=== PATIENT | female | born 1975 | race Caucasian/White ===

== ENCOUNTER → 2018-02-15 13:03 | Outpatient (CLI) | payer OTHER, SELFPAY ==
--- NOTE | 2018-02-15 | DI.MG.S_ITS ---
BILATERAL DIGITAL SCREENING MAMMOGRAM 3D/2D WITH CAD: 02/15/2018 CLINICAL: Routine screening. Baseline exam. No prior exams were available for comparison. There are scattered fibroglandular elements in both breasts. Current study was also evaluated with a Computer Aided Detection (CAD) system. There is a 3.1 cm irregular equal density asymmetry with a spiculated margin in the right breast at 11 o'clock posterior depth. There is architectural distortion associated with the asymmetry. No other significant masses, calcifications, or other findings are seen in either breast. IMPRESSION: INCOMPLETE: NEEDS ADDITIONAL IMAGING EVALUATION The 3.1 cm irregular equal density asymmetry in the right breast is indeterminate. Mediolateral and spot compression views as well as additional views with possible ultrasound are recommended. This exam was interpreted at Station ID: [id number]. NOTE: For mammograms, a report in lay terms will be sent to the patient. Approximately 15% of breast malignancies will not be visualized mammographically. In the management of a palpable breast mass, a negative mammogram must not discourage biopsy of a clinically suspicious lesion. Electronically Signed By: Yoseph cabrales/susan:02/15/2018 16:09:54 letter sent: Additional Imaging Needed ACR BI-RADS Category 0: Incomplete 3340F
== END ==
PROVIDERS: PCP Nurse Practitioner; Visit Provider Nurse Practitioner
DX: Z12.31 Encounter for screening mammogram for malignant neoplasm of breast (principal)
CPT/HCPCS: 77063; 77067

== ENCOUNTER → 2018-02-26 14:13 | Outpatient (CLI) | payer OTHER, SELFPAY ==
--- NOTE | 2018-02-26 | DI.US.S_ITS ---
ULTRASOUND OF RIGHT BREAST: 02/26/2018 CLINICAL: Additional evaluation requested from prior study. Comparison is made to exams dated: 02/26/2018 mammogram and 02/15/2018 mammogram - [facility]. Color flow ultrasound of the right breast was performed. Alcantar scale images of the real-time examination were reviewed. There is a 1.8 cm x 1.1 cm x 0.8 cm irregular mass with a spiculated margin in the right breast at 11 o'clock middle depth 7 cm from the nipple. This irregular mass is hypoechoic. IMPRESSION: HIGHLY SUGGESTIVE OF MALIGNANCY - FOLLOW-UP RECOMMENDED The 1.8 cm x 1.1 cm x 0.8 cm irregular mass in the right breast is highly suggestive of malignancy. An ultrasound guided biopsy is recommended. Findings discussed in person with the patient by Dr. Riley of the department of radiology at the time of evaluation. This exam was interpreted at Station ID: [id number]. Electronically Signed By: Antwan Degroot M.D. cj/:02/26/2018 16:03:04 letter sent: Biopsy Required Ultrasound BI-RADS: 5 Highly suggestive of malignancy
--- NOTE | 2018-02-26 | DI.MG.S_ITS ---
UNILATERAL RIGHT DIGITAL DIAGNOSTIC MAMMOGRAM 3D/2D WITH ADDITIONAL VIEWS: 02/26/2018 CLINICAL: Additional evaluation requested from prior study. Comparison is made [facility] There are scattered fibroglandular elements in the right breast. There is a 1.7 cm irregular equal density mass with a spiculated margin and calcifications in the right breast at 11 o'clock middle depth. This correlates as palpated. No other significant masses or calcifications are seen in the breast. IMPRESSION: INCOMPLETE: NEEDS ADDITIONAL IMAGING EVALUATION The 1.7 cm irregular equal density mass in the right breast is indeterminate. An ultrasound is recommended. This exam was interpreted at Station ID: [id number]. NOTE: For mammograms, a report in lay terms will be sent to the patient. Approximately 15% of breast malignancies will not be visualized mammographically. In the management of a palpable breast mass, a negative mammogram must not discourage biopsy of a clinically suspicious lesion. Electronically Signed By: Antwan naranjo/susan:02/26/2018 16:01:18 ACR BI-RADS Category 0: Incomplete 3340F
== END ==
PROVIDERS: PCP Nurse Practitioner; Visit Provider Nurse Practitioner
DX: R92.8 Other abnormal and inconclusive findings on diagnostic imaging of breast (principal)
CPT/HCPCS: 76642; 77065; G0279

== ENCOUNTER 2018-07-10 14:30 | Outpatient (RCR) | payer OTHER, SELFPAY ==
--- NOTE | 2018-06-28 13:09 | PT.OPPOC ---
Current Diagnoses Malignant neoplasm of unspecified site of right female breast (06/27/18) Pain in right shoulder (06/27/18) Pain in right arm (06/27/18) Other specified postprocedural states (06/27/18) Provider Visit Care Team Role Provider Type EARLENE Mock Primary Care Provider Non-Staff Specialty: Medical Address: [address] [place] [address], [phone] Fax: Email: Tonie Cruz MD Attending Provider Non-Staff Specialty: General Surgery Address: [address] [place] [address], [phone] Email: Plan Of Care PT-OP-T Assessment and Plan Start: 06/27/18 11:15 Freq: Status: Active Protocol: Document 06/27/18 11:15 FEDERICO (Rec: 06/28/18 10:36 [facility] [id number]) Physical Therapy Assessment Rehab Potential Rehabilitation Potential Good Evaluation Complexity Number of Personal Factors/Comorbidities 3 or More Number of Body Systems Impaired 3 Clinical Presentation at Evaluation Evolving Impairments Impairments Edema Functional Activities Pain ROM Goals Four Impairment edema [facility] Goal (LTG) Patient will obtain appropriate compression garment(s) as indicated by her signs and symptoms of edema. Three Impairment lymphedema vs post-op swelling right axilla and breast, potential R UE Short Term Goal (STG) Patient to be instructed in lymphedema precautions and prevention and demonstrate good understanding. Decrease edema in right axilla and breast to minimal. STG Duration 6 wks [facility] Goal (LTG) Patient to be independent with self-monitoring for edema and be taught manual lymphatic drainage techniques and sequential lymphedema exercises for self-management. No significant edema. LTG Duration 3 months Two Impairment ROM Short Term Goal (STG) Instruct patient in HEP for purposes of right UE ROM STG Duration 3 wks [facility] Goal (LTG) right shoulder ROM WNL with patient able to reach overhead and behind her back without difficulty LTG Duration 3 months One Impairment pain Short Term Goal (STG) Decrease pain to no greater than 2/10 right UE STG Duration 6 wks [facility] Goal (LTG) Decrease pain 0/10 LTG Duration 3 months Assessment Summary Assessment Patient presents with pain, decreased ROM and some swelling right axilla and breast; unclear at this time whether post-op edema or lymphedema. Has subclinical signs and symptoms of lymphedema right UE with c/o heavyness and achiness. Would benefit from PT for ROM right UE, scar massage, education regarding lymphedema symptoms, precautions, and prevention, edema management with manual techniques, therapeutic exercises, compression as indicated, close monitoring for change in edema symptoms. Physical Therapy Plan Frequency and Duration Frequency of Treatment 2x/Week Duration of Treatment 3 months Plan of Care Start Date 06/27/18 Plan of Care End Date 09/27/18 Therapeutic Interventions Therapeutic Interventions Home Exercise Program Lymphedema Management Manual Therapy Taping Therapeutic Exercises Next Visit Focus/Plan Next Note Type Treatment Note Next Visit Plan review HEP, progress as tolerated to include pulleys. Continue lymphedema education and treatment, scar massage, edema monitoring. Plan of Care Dates Plan of Care Start Date 06/27/18 Plan of Care End Date 09/27/18 Please Sign and Return: I have reviewed this Plan of Care and certify that the skilled therapy services above are required to meet the patient?s needs. Physician Signature Date Printed Name and Credentials Clinical Instructor Signature Printed Name and Credentials
--- NOTE | 2018-06-28 13:09 | PT.OIE ---
Current Diagnoses Malignant neoplasm of unspecified site of right female breast (06/27/18) Pain in right shoulder (06/27/18) Pain in right arm (06/27/18) Other specified postprocedural states (06/27/18) Provider Visit Care Team Role Provider Type EARLENE Mock Primary Care Provider Non-Staff Specialty: Medical Address: [address] [place] [address], [phone] Fax: Email: Tonie Cruz MD Attending Provider Non-Staff Specialty: General Surgery Address: [address] [place] [address], [phone] Email: Physical Therapy Initial Evaluation PT-OP-A Visit Information Start: 06/27/18 11:15 Freq: Status: Active Protocol: Document 06/27/18 11:15 SAK (Rec: 06/28/18 10:36 [facility] [id number]) Out-Patient Physical Therapy Visit Information Visit Information Visit Type Initial Evaluation Visit Start Time 11:15 Visit Stop Time 12:00 Total Visit Minutes 45 Visit Number 1 Number of CHEMICAL ETCH OPERATOR Visits 0 Evaluation Information Evaluation Date 06/27/18 PT-OP-B Current Condition Start: 06/27/18 11:15 Freq: Status: Active Protocol: Document 06/27/18 11:15 SAK (Rec: 06/28/18 10:36 [facility] [id number]) Current Condition History of Current Condition Onset Date 6 months Current Complaints right UE pain and tightness s/ p lumpectomy History of Current Condition Patient s/p lumpectomy 05/22/18 with 7 lymph nodes removed due to diagnosis of breast cancer. No chemo but just completed mapping to begin radiation treatments next week . C/o function-limiting pain and tightness right UE, with some c/o achiness and heaviness right UE. Hasn't noticed any UE edema but reports having some breast swelling especially toward end of day inferior aspect of breast. Referred to PT with order for ROM exercises, scar massage treatment, lymphedema education, evaluation and treatment. to include bilaterla extremity girth measurement. Future Testing and Treatments Planned radiation, Tamoxafin x 5 years . Treatment Goals Patient/Caregiver Goals Decrease pain and improve ROM to normal right UE. 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 [employer] Current Functional Impairments (Reported) Functional Limitations- ADL's difficulty reaching overhead and behind her back PT-OP-C Subjective Start: 06/27/18 11:15 Freq: Status: Active Protocol: Document 06/27/18 11:15 [facility] (Rec: 06/28/18 10:36 [facility] [id number]) Patient Questionnaires Quick Dash- Upper Extremity Quick Dash UE Score 55 Quick Dash UE Impairment 40 to 59% Impaired (Score 40- 59) OP-PT Pain Assessment Pain Assessment Grid Paper Pain Assessment Grid Completed Yes Location right UE, axilla Intensity 4 Scale Used Numeric (1 - 10) Description Aching Tender Pain Behaviors Pain Behaviors Guarding Wincing PT-OP-F Manual Assessment Start: 06/27/18 11:15 Freq: Status: Active Protocol: Document 06/27/18 11:15 [facility] (Rec: 06/28/18 10:36 [facility] [id number]) Manual Assessments Soft Tissue Assessment Soft Tissue Mobility Assessment Surgical scar well healed, immature with some decrease in mobility. Mild subaxillary and right breast swelling with mild subaxillary puckering. Soft tissue of right UE and breast without increase in warmth or fibrosis. Patient reports some increased warmth right breast especially toward end of day. PT-OP-J Posture/Palpation/Skin Start: 06/27/18 11:15 Freq: Status: Active Protocol: Document 06/27/18 11:15 [facility] (Rec: 06/28/18 10:36 [facility] [id number]) Posture Evaluation Position Sitting Head/C-Spine Posture Forward Head T-Spine Posture Increased Kyphosis Shoulder Posture (L) Rounded (R) Rounded PT-OP-K Range of Motion Start: 06/27/18 11:15 Freq: Status: Active Protocol: Document 06/27/18 11:15 [facility]AK (Rec: 06/28/18 10:36 [facility] [id number]) Cervical Spine Range of Motion Cervical Spine Active Comments WNL Shoulder Goniometric Range of Motion Shoulder Measured in Degrees Right Active Shoulder ROM WFL Yes Testing Position Sitting Flexion 155 Extension 10 Abduction 150 External Rotation at 45 degrees 55 Abduction Internal Rotation Behind Back (text) L4 Left Active Shoulder ROM WFL Yes Testing Position Sitting Flexion 175 Extension 25 Abduction 170 External Rotation at 45 degrees 55 Abduction Internal Rotation Behind Back (text) T10 Shoulder ROM Limitations Shoulder ROM Limitations Soft Tissue Tightness Pain PT-OP-N Lymphedema Start: 06/27/18 11:15 Freq: Status: Active Protocol: Document 06/27/18 11:15 [facility] (Rec: 06/28/18 10:36 [facility] [id number]) Lymphedema Measurements Upper Extremity Circumference Measurements Right Affected MCP 19.5 cm Wrist 17.3 cm 5 cm From Distal Crease 18.9 cm 10 cm From Distal Crease 23.1 cm 15 cm From Distal Crease 25.8 cm 20 cm From Distal Crease 26 cm 25 cm From Distal Crease 27.8 cm 30 cm From Distal Crease 30.1 cm 35 cm From Distal Crease 32.8 cm 40 cm From Distal Crease 34 cm Axilla 37.4 cm Left Unaffected MCP 20.3 cm Wrist 17.2 cm 5 cm From Distal Crease 19 cm 10 cm From Distal Crease 22.9 cm 15 cm From Distal Crease 26.2 cm 20 cm From Distal Crease 25.9 cm 25 cm From Distal Crease 28.5 cm 30 cm From Distal Crease 29.8 cm 35 cm From Distal Crease 32.6 cm 40 cm From Distal Crease 34.8 cm Axilla 36.9 cm PT-OP-Q Treatments Start: 06/27/18 11:15 Freq: Status: Active Protocol: Document 06/27/18 11:15 [facility] (Rec: 06/28/18 10:36 [facility] [id number]) Lymphedema Treatment Patient Education Lymphedema Pathology initiated Lymphedema Prevention initiated Lymphedema Precautions initiated Compression Garments recommended shapewear for breast edema Other Instructed in gentle scar massage for surgical scar. PT-OP-T Assessment and Plan Start: 06/27/18 11:15 Freq: Status: Active Protocol: Document 06/27/18 11:15 [facility] (Rec: 06/28/18 10:36 [facility] [id number]) Physical Therapy Assessment Rehab Potential Rehabilitation Potential Good Evaluation Complexity Number of Personal Factors/Comorbidities 3 or More Number of Body Systems Impaired 3 Clinical Presentation at Evaluation Evolving Impairments Impairments Edema Functional Activities Pain ROM Goals Four Impairment edema Clinical Documentation Consultant Goal (LTG) Patient will obtain appropriate compression garment(s) as indicated by her signs and symptoms of edema. Three Impairment lymphedema vs post-op swelling right axilla and breast, potential R UE Short Term Goal (STG) Patient to be instructed in lymphedema precautions and prevention and demonstrate good understanding. Decrease edema in right axilla and breast to minimal. STG Duration 6 wks Clinical Documentation Consultant Goal (LTG) Patient to be independent with self-monitoring for edema and be taught manual lymphatic drainage techniques and sequential lymphedema exercises for self-management. No significant edema. LTG Duration 3 months Two Impairment ROM Short Term Goal (STG) Instruct patient in HEP for purposes of right UE ROM STG Duration 3 wks Clinical Documentation Consultant Goal (LTG) right shoulder ROM WNL with patient able to reach overhead and behind her back without difficulty LTG Duration 3 months One Impairment pain Short Term Goal (STG) Decrease pain to no greater than 2/10 right UE STG Duration 6 wks Clinical Documentation Consultant Goal (LTG) Decrease pain 0/10 LTG Duration 3 months Assessment Summary Assessment Patient presents with pain, decreased ROM and some swelling right axilla and breast; unclear at this time whether post-op edema or lymphedema. Has subclinical signs and symptoms of lymphedema right UE with c/o heavyness and achiness. Would benefit from PT for ROM right UE, scar massage, education regarding lymphedema symptoms, precautions, and prevention, edema management with manual techniques, therapeutic exercises, compression as indicated, close monitoring for change in edema symptoms. Physical Therapy Plan Frequency and Duration Frequency of Treatment 2x/Week Duration of Treatment 3 months Plan of Care Start Date 06/27/18 Plan of Care End Date 09/27/18 Therapeutic Interventions Therapeutic Interventions Home Exercise Program Lymphedema Management Manual Therapy Taping Therapeutic Exercises Next Visit Focus/Plan Next Note Type Treatment Note Next Visit Plan review HEP, progress as tolerated to include pulleys. Continue lymphedema education and treatment, scar massage, edema monitoring.
--- NOTE | 2018-07-04 14:16 | PT.OTN ---
Current Diagnoses Malignant neoplasm of unspecified site of right female breast (07/03/18) Pain in right shoulder (07/03/18) Pain in right arm (07/03/18) Other specified postprocedural states (07/03/18) Physical Therapy Treatment Note PT-OP-A Visit Information Start: 06/27/18 11:15 Freq: Status: Active Protocol: Document 07/03/18 09:00 SAK (Rec: 07/04/18 14:15 [facility] [id number]) Out-Patient Physical Therapy Visit Information Visit Information Visit Type Treatment Note Visit Start Time 09:00 Visit Stop Time 09:45 Total Visit Minutes 45 Visit Number 2 Number of INSTRUCTOR BRIDGE Visits 0 Evaluation Information Evaluation Date 06/27/18 PT-OP-B Current Condition Start: 06/27/18 11:15 Freq: Status: Active Protocol: Document 06/27/18 11:15 [facility]AK (Rec: 06/28/18 10:36 [facility] [id number]) Current Condition History of Current Condition Onset Date 6 months Current Complaints right UE pain and tightness s/ p lumpectomy History of Current Condition Patient s/p lumpectomy 05/22/18 with 7 lymph nodes removed due to diagnosis of breast cancer. No chemo but just completed mapping to begin radiation treatments next week . C/o function-limiting pain and tightness right UE, with some c/o achiness and heaviness right UE. Hasn't noticed any UE edema but reports having some breast swelling especially toward end of day inferior aspect of breast. Referred to PT with order for ROM exercises, scar massage treatment, lymphedema education, evaluation and treatment. to include bilaterla extremity girth measurement. Future Testing and Treatments Planned radiation, Tamoxafin x 5 years . Treatment Goals Patient/Caregiver Goals Decrease pain and improve ROM to normal right UE. 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 Swelling in breast persists, has not gotten new bra for compression . PT-OP-F Manual Assessment Start: 06/27/18 11:15 Freq: Status: Active Protocol: Document 06/27/18 11:15 [facility]AK (Rec: 06/28/18 10:36 [facility] [id number]) Manual Assessments Soft Tissue Assessment Soft Tissue Mobility Assessment Surgical scar well healed, immature with some decrease in mobility. Mild subaxillary and right breast swelling with mild subaxillary puckering. Soft tissue of right UE and breast without increase in warmth or fibrosis. Patient reports some increased warmth right breast especially toward end of day. PT-OP-J Posture/Palpation/Skin Start: 06/27/18 11:15 Freq: Status: Active Protocol: Document 06/27/18 11:15 [facility]AK (Rec: 06/28/18 10:36 [facility] [id number]) Posture Evaluation Position Sitting Head/C-Spine Posture Forward Head T-Spine Posture Increased Kyphosis Shoulder Posture (L) Rounded (R) Rounded PT-OP-K Range of Motion Start: 06/27/18 11:15 Freq: Status: Active Protocol: Document 06/27/18 11:15 [facility]AK (Rec: 06/28/18 10:36 [facility] [id number]) Cervical Spine Range of Motion Cervical Spine Active Comments WNL Shoulder Goniometric Range of Motion Shoulder Measured in Degrees Right Active Shoulder ROM WFL Yes Testing Position Sitting Flexion 155 Extension 10 Abduction 150 External Rotation at 45 degrees 55 Abduction Internal Rotation Behind Back (text) L4 Left Active Shoulder ROM WFL Yes Testing Position Sitting Flexion 175 Extension 25 Abduction 170 External Rotation at 45 degrees 55 Abduction Internal Rotation Behind Back (text) T10 Shoulder ROM Limitations Shoulder ROM Limitations Soft Tissue Tightness Pain PT-OP-N Lymphedema Start: 06/27/18 11:15 Freq: Status: Active Protocol: Document 07/03/18 09:00 [facility]AK (Rec: 07/04/18 14:15 [facility] [id number]) Lymphedema Measurements Comments Lymphedema Comments R breast persistent edema inferiorly. PT-OP-Q Treatments Start: 06/27/18 11:15 Freq: Status: Active Protocol: Document 07/03/18 09:00 [facility] (Rec: 07/04/18 14:15 [facility] [id number]) Therapeutic Exercises Supine Exercises shoulder abd Reps/Minutes 10x shoulder flex with wand Reps/Minutes 10x pec stretch Reps/Minutes 2 min Sidelying Exercises reach and roll Reps/Minutes 5x ea side Comments verbal and manual clues Sitting Exercises shoulder rolls Reps/Minutes 10x pulleys shoulder flex,scaption Reps/Minutes 2 min Manual Therapy Treatment Soft Tissue Mobilization scar massage right axilla Mobilization Type Myofascial Release Lymphedema Treatment Manual Lymphatic Drainage Location right breast Duration 12 min Patient Education Self Manual Lymphatic Drainage instructed Other instructed to obtain new sports bra as well as stretchy shapewear for compression to chest; shown examples. PT-OP-T Assessment and Plan Start: 06/27/18 11:15 Freq: Status: Active Protocol: Document 07/03/18 09:00 FEDERICO (Rec: 07/04/18 14:15 [facility] [id number]) Physical Therapy Assessment Goals Four Impairment edema Machine Operations Supervisor Goal (LTG) Patient will obtain appropriate compression garment(s) as indicated by her signs and symptoms of edema. Three Impairment lymphedema vs post-op swelling right axilla and breast, potential R UE Short Term Goal (STG) Patient to be instructed in lymphedema precautions and prevention and demonstrate good understanding. Decrease edema in right axilla and breast to minimal. STG Duration 6 wks Machine Operations Supervisor Goal (LTG) Patient to be independent with self-monitoring for edema and be taught manual lymphatic drainage techniques and sequential lymphedema exercises for self-management. No significant edema. LTG Duration 3 months Two Impairment ROM Short Term Goal (STG) Instruct patient in HEP for purposes of right UE ROM STG Duration 3 wks Machine Operations Supervisor Goal (LTG) right shoulder ROM WNL with patient able to reach overhead and behind her back without difficulty LTG Duration 3 months One Impairment pain Short Term Goal (STG) Decrease pain to no greater than 2/10 right UE STG Duration 6 wks [facility] Goal (LTG) Decrease pain 0/10 LTG Duration 3 months Assessment Summary Assessment Patient's right shoulder ROM improved, demonstrated good understanding of exercises and appears to be compliant. Edema persists, patient demonstrated good understanding of need for compression and of options; she will pursue. Physical Therapy Plan Frequency and Duration Frequency of Treatment 2x/Week Duration of Treatment 3 months Plan of Care Start Date 06/27/18 Plan of Care End Date 09/27/18 Therapeutic Interventions Therapeutic Interventions Home Exercise Program Lymphedema Management Manual Therapy Taping Therapeutic Exercises Next Visit Focus/Plan Next Note Type Treatment Note Next Visit Plan assess any compression patient has obtained to reduce right breast edema. Continue with ther ex, manual techniques as indicated.
--- NOTE | 2018-07-10 16:47 | PT.OTN ---
Current Diagnoses Malignant neoplasm of unspecified site of right female breast (07/10/18) Pain in right shoulder (07/10/18) Pain in right arm (07/10/18) Other specified postprocedural states (07/10/18) Physical Therapy Treatment Note PT-OP-A Visit Information Start: 06/27/18 11:15 Freq: Status: Active Protocol: Document 07/10/18 14:30 SAK (Rec: 07/10/18 15:19 SAK [id number]) Out-Patient Physical Therapy Visit Information Visit Information Visit Type Treatment Note Visit Start Time 14:30 Visit Stop Time 15:15 Total Visit Minutes 45 Visit Number 3 Number of MATERIAL HANDLER FLOORPERSON Visits 0 Evaluation Information Evaluation Date 06/27/18 PT-OP-B Current Condition Start: 06/27/18 11:15 Freq: Status: Active Protocol: Document 06/27/18 11:15 SAK (Rec: 06/28/18 10:36 SAK [id number]) Current Condition History of Current Condition Onset Date 6 months Current Complaints right UE pain and tightness s/ p lumpectomy History of Current Condition Patient s/p lumpectomy 05/22/18 with 7 lymph nodes removed due to diagnosis of breast cancer. No chemo but just completed mapping to begin radiation treatments next week . C/o function-limiting pain and tightness right UE, with some c/o achiness and heaviness right UE. Hasn't noticed any UE edema but reports having some breast swelling especially toward end of day inferior aspect of breast. Referred to PT with order for ROM exercises, scar massage treatment, lymphedema education, evaluation and treatment. to include bilaterla extremity girth measurement. Future Testing and Treatments Planned radiation, Tamoxafin x 5 years . Treatment Goals Patient/Caregiver Goals Decrease pain and improve ROM to normal right UE. 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 Reports she is wearing different sports bra which fits better and also got shape-wear tank top to provide additional compression . Still noting some pink discoloration and swelling toward end of day right breast . PT-OP-F Manual Assessment Start: 06/27/18 11:15 Freq: Status: Active Protocol: Document 06/27/18 11:15 SAK (Rec: 06/28/18 10:36 [facility] [id number]) Manual Assessments Soft Tissue Assessment Soft Tissue Mobility Assessment Surgical scar well healed, immature with some decrease in mobility. Mild subaxillary and right breast swelling with mild subaxillary puckering. Soft tissue of right UE and breast without increase in warmth or fibrosis. Patient reports some increased warmth right breast especially toward end of day. PT-OP-J Posture/Palpation/Skin Start: 06/27/18 11:15 Freq: Status: Active Protocol: Document 06/27/18 11:15 SAK (Rec: 06/28/18 10:36 [facility] [id number]) Posture Evaluation Position Sitting Head/C-Spine Posture Forward Head T-Spine Posture Increased Kyphosis Shoulder Posture (L) Rounded (R) Rounded PT-OP-K Range of Motion Start: 06/27/18 11:15 Freq: Status: Active Protocol: Document 06/27/18 11:15 SAK (Rec: 06/28/18 10:36 [facility] [id number]) Cervical Spine Range of Motion Cervical Spine Active Comments WNL Shoulder Goniometric Range of Motion Shoulder Measured in Degrees Right Active Shoulder ROM WFL Yes Testing Position Sitting Flexion 155 Extension 10 Abduction 150 External Rotation at 45 degrees 55 Abduction Internal Rotation Behind Back (text) L4 Left Active Shoulder ROM WFL Yes Testing Position Sitting Flexion 175 Extension 25 Abduction 170 External Rotation at 45 degrees 55 Abduction Internal Rotation Behind Back (text) T10 Shoulder ROM Limitations Shoulder ROM Limitations Soft Tissue Tightness Pain PT-OP-N Lymphedema Start: 06/27/18 11:15 Freq: Status: Active Protocol: Document 07/03/18 09:00 SAK (Rec: 07/04/18 14:15 SAK [id number]) Lymphedema Measurements Comments Lymphedema Comments R breast persistent edema inferiorly. PT-OP-Q Treatments Start: 06/27/18 11:15 Freq: Status: Active Protocol: Document 07/10/18 14:30 [facility] (Rec: 07/10/18 15:19 [facility] [id number]) Therapeutic Exercises Supine Exercises pec stretch Reps/Minutes 4 min Comments major and minor; passive and manual Sidelying Exercises shoulder abduction Reps/Minutes 5x reach and roll Reps/Minutes 5x ea side Comments verbal and manual clues Sitting Exercises pulleys shoulder flex,scaption Reps/Minutes 2 min Manual Therapy Treatment Soft Tissue Mobilization scar massage right axilla Mobilization Type Myofascial Release Rolling Lymphedema Treatment Manual Lymphatic Drainage Location right breast Duration 10 min Patient Education Self Manual Lymphatic Drainage instructed with handout given Other Other kinesiotape fan technique applied to right breast for edema reduction trial; patient instructed and issued extra kinesiotape for self-trial if helpful. PT-OP-T Assessment and Plan Start: 06/27/18 11:15 Freq: Status: Active Protocol: Document 07/10/18 14:30 [facility] (Rec: 07/10/18 16:47 [facility] [id number]) Physical Therapy Assessment Rehab Potential Rehabilitation Potential Good Goals Four Impairment edema Detention Goal (LTG) Patient will obtain appropriate compression garment(s) as indicated by her signs and symptoms of edema. Three Impairment lymphedema vs post-op swelling right axilla and breast, potential R UE Short Term Goal (STG) Patient to be instructed in lymphedema precautions and prevention and demonstrate good understanding. Decrease edema in right axilla and breast to minimal. STG Duration 6 wks [employer] Analyst Goal (LTG) Patient to be independent with self-monitoring for edema and be taught manual lymphatic drainage techniques and sequential lymphedema exercises for self-management. No significant edema. LTG Duration 3 months Two Impairment ROM Short Term Goal (STG) Instruct patient in HEP for purposes of right UE ROM STG Duration 3 wks [employer] Analyst Goal (LTG) right shoulder ROM WNL with patient able to reach overhead and behind her back without difficulty LTG Duration 3 months One Impairment pain Short Term Goal (STG) Decrease pain to no greater than 2/10 right UE STG Duration 6 wks [employer] Analyst Goal (LTG) Decrease pain 0/10 LTG Duration 3 months Assessment Summary Assessment Patient highly compliant with HEP and obtaining better sports bra as well as shapewear tank top. Trial of kinesiotape for edema reduction as well. Patient demonstrates good understanding of all. Surgical scar mobility improved but still adherent in superior-lateral direction; patient demonstrates good understanding of self-massage however has difficulty due to length of arms Physical Therapy Plan Frequency and Duration Frequency of Treatment 2x/Week Duration of Treatment 3 months Plan of Care Start Date 06/27/18 Plan of Care End Date 09/27/18 Therapeutic Interventions Therapeutic Interventions Home Exercise Program Lymphedema Management Manual Therapy Taping Therapeutic Exercises Next Visit Focus/Plan Next Note Type Treatment Note Next Visit Plan Continue with edema management , soft tissue mobilization, ROM.
--- NOTE | 2018-09-30 16:14 | PT.OPDS ---
Current Diagnoses Malignant neoplasm of unspecified site of right female breast (07/10/18) Pain in right shoulder (07/10/18) Pain in right arm (07/10/18) Other specified postprocedural states (07/10/18) Provider Visit Care Team Role Provider Type EARLENE Mock Primary Care Provider Non-Staff Specialty: Medical Address: [address] [place] [address], [id number] Fax: Email: Tonie Cruz MD Attending Provider Non-Staff Specialty: General Surgery Address: [address] [place] [address], [phone] Email: Visit Number Visit Number 3 Discharge Summary PT-OP-B Current Condition Start: 06/27/18 11:15 Freq: Status: Active Protocol: Document 06/27/18 11:15 SAK (Rec: 06/28/18 10:36 SAK [id number]) Current Condition History of Current Condition Onset Date 6 months Current Complaints right UE pain and tightness s/ p lumpectomy History of Current Condition Patient s/p lumpectomy 05/22/18 with 7 lymph nodes removed due to diagnosis of breast cancer. No chemo but just completed mapping to begin radiation treatments next week . C/o function-limiting pain and tightness right UE, with some c/o achiness and heaviness right UE. Hasn't noticed any UE edema but reports having some breast swelling especially toward end of day inferior aspect of breast. Referred to PT with order for ROM exercises, scar massage treatment, lymphedema education, evaluation and treatment. to include bilaterla extremity girth measurement. Future Testing and Treatments Planned radiation, Tamoxafin x 5 years . Treatment Goals Patient/Caregiver Goals Decrease pain and improve ROM to normal right UE. 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 Reports she is wearing different sports bra which fits better and also got shape-wear tank top to provide additional compression . Still noting some pink discoloration and swelling toward end of day right breast . PT-OP-F Manual Assessment Start: 06/27/18 11:15 Freq: Status: Active Protocol: Document 06/27/18 11:15 [facility] (Rec: 06/28/18 10:36 [facility] [id number]) Manual Assessments Soft Tissue Assessment Soft Tissue Mobility Assessment Surgical scar well healed, immature with some decrease in mobility. Mild subaxillary and right breast swelling with mild subaxillary puckering. Soft tissue of right UE and breast without increase in warmth or fibrosis. Patient reports some increased warmth right breast especially toward end of day. PT-OP-J Posture/Palpation/Skin Start: 06/27/18 11:15 Freq: Status: Active Protocol: Document 06/27/18 11:15 [facility] (Rec: 06/28/18 10:36 [facility] [id number]) Posture Evaluation Position Sitting Head/C-Spine Posture Forward Head T-Spine Posture Increased Kyphosis Shoulder Posture (L) Rounded (R) Rounded PT-OP-K Range of Motion Start: 06/27/18 11:15 Freq: Status: Active Protocol: Document 06/27/18 11:15 [facility] (Rec: 06/28/18 10:36 [facility] [id number]) Cervical Spine Range of Motion Cervical Spine Active Comments WNL Shoulder Goniometric Range of Motion Shoulder Measured in Degrees Right Active Shoulder ROM WFL Yes Testing Position Sitting Flexion 155 Extension 10 Abduction 150 External Rotation at 45 degrees 55 Abduction Internal Rotation Behind Back (text) L4 Left Active Shoulder ROM WFL Yes Testing Position Sitting Flexion 175 Extension 25 Abduction 170 External Rotation at 45 degrees 55 Abduction Internal Rotation Behind Back (text) T10 Shoulder ROM Limitations Shoulder ROM Limitations Soft Tissue Tightness Pain PT-OP-N Lymphedema Start: 06/27/18 11:15 Freq: Status: Active Protocol: Document 07/03/18 09:00 SAK (Rec: 07/04/18 14:15 [facility] [id number]) Lymphedema Measurements Comments Lymphedema Comments R breast persistent edema inferiorly. PT-OP-T Assessment and Plan Start: 06/27/18 11:15 Freq: Status: Active Protocol: Document 09/30/18 16:10 [facility] (Rec: 09/30/18 16:14 [facility] [id number]) Physical Therapy Assessment Assessment Summary Assessment Patient had been making good progress in PT, last seen . Has not scheduled any further appointments so will be discharged from PT. May benefit from further PT in the future. Physical Therapy Plan Discharge Physical Therapy Discharge Reasons No Longer Attending PT
== END 2018-10-09 12:51 ==
LOC: PHYS 14:30
PROVIDERS: PCP Nurse Practitioner; Visit Provider Surgery Surgical Oncology
DX: M25.511 Pain in right shoulder (principal); M79.601 Pain in right arm; Z98.890 Other specified postprocedural states; C50.911 Malignant neoplasm of unspecified site of right female breast
CPT/HCPCS: 97110; 97140; 97162; 97535

== ENCOUNTER → 2019-07-21 15:00 | Outpatient (CLI) | payer OTHER, SELFPAY | PROVIDERS: PCP Nurse Practitioner | DX: Z23 Encounter for immunization (principal) | CPT/HCPCS: 90471; 90686 ==

== ENCOUNTER → 2020-02-27 16:14 | Outpatient (CLI) | payer OTHER, SELFPAY ==
[2020-02-28 00:35] LABS: COVID19 Sendout Not Detected (Not Detect)
== END ==
PROVIDERS: PCP Nurse Practitioner; Visit Provider Nurse Practitioner
DX: J02.9 Acute pharyngitis, unspecified (principal)
CPT/HCPCS: 87635

== ENCOUNTER → 2020-03-09 12:49 | Outpatient (CLI) | payer OTHER, SELFPAY ==
--- NOTE | 2020-03-09 | DI.MG.S_ITS ---
BILATERAL DIGITAL DIAGNOSTIC MAMMOGRAM 3D/2D POST LUMPECTOMY: 03/09/2020 CLINICAL: Breast cancer. Comparison is made to exams dated: 03/14/2018 mammogram - [facility], 02/26/2018 mammogram, and 02/15/2018 mammogram - [facility]. There are scattered fibroglandular elements in both breasts. The right breast has increased in density with trabecular and skin thickening likely reflecting lymphedema due to surgery. There is irregular equal density architectural distortion with an indistinct margin in the right breast at 11 o'clock posterior depth. There are are surgical clips, a post-surgical scar, skin thickening, and trabecular thickening associated with the architectural distortion. This correlates with prior surgery. No other significant masses, calcifications, or other findings are seen in either breast. IMPRESSION: INCOMPLETE: NEEDS ADDITIONAL IMAGING EVALUATION The irregular equal density architectural distortion in the right breast is consistent with a previous surgery and is benign. There is no abnormality seen in the right breast to correspond with the palpable abnormality in the inner aspect, however, ultrasound is recommended and will be performed immediately following this study. This exam was interpreted at Station ID: [id number]. NOTE: For mammograms, a report in lay terms will be sent to the patient. Approximately 15% of breast malignancies will not be visualized mammographically. In the management of a palpable breast mass, a negative mammogram must not discourage biopsy of a clinically suspicious lesion. Electronically Signed By: Yoseph Munoz M.D. ddp/:03/09/2020 13:39:33 copy to: darlin angulo [facility] ACR BI-RADS Category 0: Incomplete [id number]
--- NOTE | 2020-03-09 | DI.US.S_ITS ---
LIMITED ULTRASOUND OF RIGHT BREAST: 03/09/2020 CLINICAL: Palpable right breast lump. Comparison is made to exams dated: 03/09/2020 mammogram - [facility], 03/14/2018 mammogram, 03/14/2018 ultrasound biopsy - [facility], 02/26/2018 ultrasound, 02/26/2018 mammogram, and 02/15/2018 mammogram - [facility]. Real-time ultrasound of the right breast 1 o'clock region was performed on the area of interest. No discrete cystic or solid mass lesion identified in the area of palpable abnormality. IMPRESSION: NEGATIVE There is no sonographic evidence of malignancy. There is no abnormality seen in the right breast to correspond with the palpable abnormality at 1 o'clock, however, clinical followup is recommended. A 1 year screening mammogram is recommended. This exam was interpreted at Station ID: [id number]. Electronically Signed By: Yoseph Munoz M.D. ddfei/:03/09/2020 14:11:46 copy to: darlin angulo, [facility] letter sent: Clinical Evaluation Ultrasound BI-RADS: 1 Negative
== END ==
PROVIDERS: PCP Family Medicine
DX: R92.8 Other abnormal and inconclusive findings on diagnostic imaging of breast (principal); N63.12 Unspecified lump in the right breast, upper inner quadrant; Z85.3 Personal history of malignant neoplasm of breast
CPT/HCPCS: 76642; 77066; G0279

== ENCOUNTER → 2020-07-28 12:57 | Outpatient (CLI) | payer OTHER, SELFPAY | PROVIDERS: PCP Family Medicine; Referring Provider Internal Medicine; Visit Provider Internal Medicine | DX: Z23 Encounter for immunization (principal) | CPT/HCPCS: 90471; 90686 ==

== ENCOUNTER → 2020-07-28 15:05 | Outpatient (CLI) | payer OTHER, SELFPAY ==
[2020-07-28 16:15] LABS: Add Manual Diff / Slide Review NO; Basophils Absolute Auto 0 /uL (0-100); Basophils Percent Auto 0.5 % (0-2); Eosinophils Absolute Auto 0 /uL (0-450); Hemoglobin 12.8 g/dL (12.0-16.0); Lymphocytes Absolute Auto 1400 /uL (1100-4500); Lymphocytes Percent Auto 29.8 % (25-40); Mean Corpuscular HGB Conc 33.6 % (30-36); Mean Corpuscular Hemoglobin 31.5 PG (26-34); Mean Corpuscular Volume 93.7 fL (80-100); Monocytes Absolute Auto 400 /uL (0-900); Monocytes Percent Auto 8.5 % (3-14); Neutrophils Absolute Auto 2700 /uL (1500-7000); Neutrophils Percent Auto 60.2 % (50-75); Platelet Count 337 X10^3/uL (150-400); Red Blood Cell Count 4.05 X10^6/uL (4.0-5.2); Red Cell Distribution Width 13.1 % (11.6-14.8); White Blood Cell Count 4.5 X10^3/uL (4.5-11.0)
[2020-07-28 16:28] LABS: Alanine Aminotransferase 27 IU/L (<35); Albumin 4.6 g/dL (3.5-5.0); Albumin Globulin Ratio 1.4 (1.0-2.8); Alkaline Phosphatase 68 U/L (38-126); Aspartate Aminotransferase 37 IU/L (14-36); BUN Creatinine Ratio 21.3 (6-22); Bilirubin Total 0.4 mg/dL (0.2-1.3); Blood Urea Nitrogen 13 mg/dL (7-17); Calcium 9.5 mg/dL (8.4-10.2); Carbon Dioxide 34 mmol/L (22-32); Chloride 101 mmol/L (98-107); Cholesterol 245 mg/dL (140-199); Estimated Glomerular Filt Rate > 60.0 mL/min (>60); Globulin 3.2 g/dL (1.7-4.1); Glucose 103 mg/dL (70-100); HDL Cholesterol 81 mg/dL (40-60); HEMOLYSIS < 15 (0-50); LDL Cholesterol Calculated 139 mg/dL (<100); Potassium 4.1 mmol/L (3.4-5.1); Sodium 138 mmol/L (137-145); Total Protein 7.8 g/dL (6.3-8.2); Triglycerides 124 mg/dL (35-150)
[2020-07-28 17:22] LABS: TSH w/ Reflex to FT4 0.85 uIU/mL (0.47-4.68)
[2020-07-28 17:33] LABS: LDL Cholesterol Direct 137 mg/dL (<100)
== END ==
PROVIDERS: PCP Family Medicine; Referring Provider Family Medicine; Visit Provider Family Medicine
DX: R50.9 Fever, unspecified (principal); E78.00 Pure hypercholesterolemia, unspecified
CPT/HCPCS: 36415; 80053; 80061; 83721; 84443; 85025

== ENCOUNTER → 2020-09-03 13:51 | Outpatient (CLI) | payer OTHER, SELFPAY ==
[2020-09-03] MEDS: COVID-19 VACC(MODERNA-1)/PF 100 MCG/0.5 ML VIAL IM (14:03)
== END ==
PROVIDERS: PCP Family Medicine; Visit Provider Internal Medicine
DX: Z23 Encounter for immunization (principal)
CPT/HCPCS: 0011A; 91301

== ENCOUNTER → 2020-09-30 15:51 | Outpatient (CLI) | payer OTHER, SELFPAY ==
[2020-09-30] MEDS: COVID-19 VACC #2, MRNA(MOD) 100 MCG/0.5 ML VIAL IM (15:57)
== END ==
PROVIDERS: PCP Family Medicine; Visit Provider Internal Medicine
DX: Z23 Encounter for immunization (principal)
CPT/HCPCS: 0012A; 91301

== ENCOUNTER → 2020-11-09 13:43 | Outpatient (CLI) | payer OTHER, SELFPAY | PROVIDERS: PCP Family Medicine; Referring Provider Internal Medicine Medical Oncology; Visit Provider Internal Medicine Medical Oncology | DX: M81.0 Age-related osteoporosis without current pathological fracture (principal); C50.411 Malignant neoplasm of upper-outer quadrant of right female breast; Z82.62 Family history of osteoporosis; Z95.3 Presence of xenogenic heart valve; Z78.0 Asymptomatic menopausal state; Z87.891 Personal history of nicotine dependence | CPT/HCPCS: 77080 ==

== ENCOUNTER → 2021-04-19 10:04 | Outpatient (CLI) | payer OTHER, SELFPAY ==
[2021-04-19 11:01] LABS: COVID19 -Nasal RAPID Negative (Negative)
== END ==
PROVIDERS: PCP Family Medicine; Visit Provider Physician Assistant
DX: Z20.822 Contact with and (suspected) exposure to COVID-19 (principal); J02.9 Acute pharyngitis, unspecified; R05 Cough; R09.81 Nasal congestion
CPT/HCPCS: 87635

== ENCOUNTER → 2021-05-10 15:01 | Outpatient (CLI) | payer OTHER, SELFPAY ==
--- NOTE | 2021-05-10 | DI.MG.S_ITS ---
BILATERAL DIGITAL SCREENING MAMMOGRAM 3D/2D WITH CAD: 05/10/2021 CLINICAL: Routine screening. Personal history of right breast cancer. Comparison is made to exams dated: 03/09/2020 mammogram - [facility], 05/16/2018 mammogram - outside location, 03/14/2018 mammogram - [facility], and 03/14/2018 mammogram - outside location. There are scattered fibroglandular elements in both breasts. Current study was also evaluated with a Computer Aided Detection (CAD) system. There are benign post operative findings in the right breast. No significant masses, calcifications, or other findings are seen in either breast. There has been no significant interval change. IMPRESSION: BENIGN There is no mammographic evidence of malignancy. A 1 year screening mammogram is recommended. This exam was interpreted at Station ID: [id number]. NOTE: For mammograms, a report in lay terms will be sent to the patient. Approximately 15% of breast malignancies will not be visualized mammographically. In the management of a palpable breast mass, a negative mammogram must not discourage biopsy of a clinically suspicious lesion. Electronically Signed By: Chapin fountain/susan:05/10/2021 15:59:45 copy to: darlin angulo [facility] [place] letter sent: Normal Exam ACR BI-RADS Category 2: Benign Finding(s) 3342F
== END ==
PROVIDERS: PCP Family Medicine; Referring Provider Internal Medicine Medical Oncology; Visit Provider Internal Medicine Medical Oncology
DX: Z12.31 Encounter for screening mammogram for malignant neoplasm of breast (principal)
CPT/HCPCS: 77063; 77067

== ENCOUNTER → 2022-07-03 14:15 | Outpatient (CLI) | payer OTHER, SELFPAY ==
--- NOTE | 2022-07-03 | DI.MG.S_ITS ---
BILATERAL DIGITAL SCREENING MAMMOGRAM 3D/2D WITH CAD POST LUMPECTOMY: 07/03/2022 CLINICAL: Routine screening. Personal history of right breast cancer. Comparison is made to exams dated: 05/10/2021 mammogram, 03/09/2020 mammogram, 02/26/2018 mammogram, and 02/15/2018 mammogram - [facility]. There are scattered areas of fibroglandular density in both breasts (category b / 25%-50% glandular tissue). Current study was also evaluated with a Computer Aided Detection (CAD) system. There are benign post operative findings in the right breast. No significant masses, calcifications, or other findings are seen in either breast. There has been no significant interval change. IMPRESSION: BENIGN There is no mammographic evidence of malignancy. A 1 year screening mammogram is recommended. This exam was interpreted at Station ID: [id number]. NOTE: For mammograms, a report in lay terms will be sent to the patient. Approximately 15% of breast malignancies will not be visualized mammographically. In the management of a palpable breast mass, a negative mammogram must not discourage biopsy of a clinically suspicious lesion. Electronically Signed By: Parveen clancy/susan:07/03/2022 16:13:33 copy to: darlin angulo, [facility] [place] letter sent: Normal Exam ACR BI-RADS Category 2: Benign Finding(s) [id number]
== END ==
PROVIDERS: PCP Family Medicine; Referring Provider Family Medicine; Visit Provider Family Medicine
DX: Z12.31 Encounter for screening mammogram for malignant neoplasm of breast (principal); Z85.3 Personal history of malignant neoplasm of breast
CPT/HCPCS: 77063; 77067

== ENCOUNTER → 2023-09-11 16:18 | Outpatient (CLI) | payer OTHER, SELFPAY ==
--- NOTE | 2023-09-11 | DI.MG.S_ITS ---
BILATERAL DIGITAL SCREENING MAMMOGRAM 3D/2D WITH CAD: 09/11/2023 CLINICAL: Routine screening. Personal history of right breast cancer. Comparison is made to exams dated: 07/03/2022 mammogram, 05/10/2021 mammogram, and 03/09/2020 mammogram - [facility]. There are scattered areas of fibroglandular density in both breasts (category b / 25%-50% glandular tissue). Current study was also evaluated with a Computer Aided Detection (CAD) system. There are benign post operative findings in the right breast. No significant masses, calcifications, or other findings are seen in either breast. There has been no significant interval change. IMPRESSION: BENIGN There is no mammographic evidence of malignancy. A 1 year screening mammogram is recommended. This exam was interpreted at Station ID: [id number]. NOTE: For mammograms, a report in lay terms will be sent to the patient. Approximately 15% of breast malignancies will not be visualized mammographically. In the management of a palpable breast mass, a negative mammogram must not discourage biopsy of a clinically suspicious lesion. Electronically Signed By: Sana kincaid/susan:09/12/2023 11:22:02 copy to: darlin angulo, [facility] [place] letter sent: Normal Exam ACR BI-RADS Category 2: Benign Finding(s) [id number]
== END ==
LOC: MAMMO 16:19
PROVIDERS: PCP Family Medicine; Referring Provider Family Medicine; Visit Provider Family Medicine
DX: Z12.31 Encounter for screening mammogram for malignant neoplasm of breast (principal); Z85.3 Personal history of malignant neoplasm of breast; R92.323 Mammographic fibroglandular density, bilateral breasts
CPT/HCPCS: 77063; 77067